=== PATIENT | male | born 1955 | race African-American/Black ===

== ENCOUNTER 2016-09-03 16:37 | Inpatient (IN) | payer OTHER ==
[~2016-09-03] VITALS: Ht 177.8 cm; Wt 82.7 kg
[2016-09-03 18:08] VITALS: BP 106/60; PULSE 135; RESP 24; TEMP 102.2; O2SAT 99
--- NOTE | 2016-09-03 18:37 | PD ---
HPI Chief Complaint: Abdominal Pain Time Seen by Provider: 18:34 Travel History International Travel<30 days: No Contact w/Intl Traveler<30days: No Traveled to known affect area: No History of Present Illness HPI 61-year-old Afro-Citizen Of [place] male [facility], with several day history of increasing abdominal pain, nausea, and vomiting times one over the past 72 hours. Patient has a history of hepatitis and HIV. Patient states decreased appetite due to his symptoms. He has had no diarrhea, but decreased stools but he states he hasn't been eating. Patient states he has felt feverish off and on in the last 2 days. He denies chest pain, shortness of breath, cough, or back pain. He denies urinary symptoms. Patient still has his gallbladder and appendix. The patient is currently incarcerated. He has no known drug allergies. [facility] Social History Alcohol Use: No Tobacco Use: No Substance Use: No Allergies-Medications (Allergen,Severity, Reaction): Coded Allergies: No Known Allergies (Unverified , 09/03/16) Reported Meds & Prescriptions Reported Meds & Active Scripts Active Reported Multi-Vitamin Daily (Multiple Vitamin) 1 Tab Tab 1 Tab PO DAILY Atripla (Itcsrahfa-Gezvjmotjzglf-Lmrfnkoyi) 600-200-300 Mg Tab 1 Tab PO HS Take on an empty stomach. [Teragel] DAILY [Teragel Shampoo] Xopenex Hfa 15 GM Inh (Levalbuterol 15 GM Inh) 45 Mcg/Act Aer 45 Mcg INH Q4-6H Shake well before using. (1 puff = 45 mcg) Aspir-81 (Aspirin) 81 Mg Tabdr 81 Mg PO DAILY [Clotrimazole Cream] BID Fiber-Lax (Calcium Polycarbophil) 625 Mg Tab 1,250 Mg PO DAILY PRN Review of Systems Except as stated in HPI: all other systems reviewed are Neg General / Constitutional: Positive: Fever, Chills Eyes: No: Visual changes HENT: No: Headaches Cardiovascular: No: Chest Pain or Discomfort Respiratory: No: Shortness of Breath Gastrointestinal: Positive: Nausea, Vomiting, Abdominal Pain (since Tuesday. See history present illness.), Loss of Appetite, No: Diarrhea, Constipation Genitourinary: No: Dysuria Musculoskeletal: No: Pain Skin: No Rash Neurologic: No: Weakness Psychiatric: No: Depression Endocrine: No: Polydipsia Hematologic/Lymphatic: No: Easy Bruising Physical Exam Narrative GENERAL: SKIN: Warm and dry. HEAD: Atraumatic. Normocephalic. EYES: Pupils equal and round. No scleral icterus. No injection or drainage. ENT: No nasal bleeding or discharge. Mucous membranes pink and moist. NECK: Trachea midline. No JVD. CARDIOVASCULAR: Regular rate and rhythm. RESPIRATORY: No accessory muscle use. Clear to auscultation. Breath sounds equal bilaterally. GASTROINTESTINAL: Abdomen soft, non-tender, nondistended. Hepatic and splenic margins not palpable. MUSCULOSKELETAL: Extremities without clubbing, cyanosis, or edema. No obvious deformities. NEUROLOGICAL: Awake and alert. No obvious cranial nerve deficits. Motor grossly within normal limits. Five out of 5 muscle strength in the arms and legs. Normal speech. PSYCHIATRIC: Appropriate mood and affect; insight and judgment normal. Data Data Last Documented VS Vital Signs Date Time Temp Pulse Resp B/P Pulse Ox O2 Delivery O2 Flow Rate FiO2 09/03/16 22:26 98.7 80 18 95/62 97 Room Air Orders Complete Blood Count With Diff (09/03/16 19:05) Comprehensive Metabolic Panel (09/03/16 19:05) Lipase (09/03/16 19:05) Prothrombin Time / Inr (Pt) (09/03/16 19:05) Act Partial Throm Time (Ptt) (09/03/16 19:05) Urinalysis - C+S If Indicated (09/03/16 19:05) Ct Abd/Pel W Iv Contrast(Rout) (09/03/16 19:05) Iv Access Insert/Monitor (09/03/16 19:05) Ecg Monitoring (09/03/16 19:05) Oximetry (09/03/16 19:05) NPO (09/03/16 19:05) Morphine Inj (Morphine Inj) (09/03/16 19:15) Ondansetron Inj (Zofran Inj) (09/03/16 19:15) Sodium Chlor 0.9% 1000 Ml Inj (Ns 1000 M (09/03/16 19:05) Sodium Chloride 0.9% Flush (Ns Flush) (09/03/16 19:15) Electrocardiogram (09/03/16 19:05) Lactic Acid Sepsis Protocol (09/03/16 19:08) Acetaminophen (Tylenol) (09/03/16 19:15) Ibuprofen (Motrin) (09/03/16 19:15) Oral Contrast - Adult (09/03/16 19:11) Vancomycin Inj (Vancomycin Inj) (09/03/16 19:11) Piperacil-Tazo 4.5 Gm Premix (Zosyn 4.5 (09/03/16 19:11) Diatrizoate Liq ( Gastroview Liq) (09/03/16 19:32) Blood Culture (09/03/16 19:32) Iohexol 350 Inj (Omnipaque 350 Inj) (09/03/16 21:35) Labs Laboratory Tests Test 09/03/16 09/03/16 19:13 19:15 White Blood Count 18.0 TH/MM3 Red Blood Count 4.21 MIL/MM3 Hemoglobin 13.2 GM/DL Hematocrit 37.5 % Mean Corpuscular Volume 89.3 FL Mean Corpuscular Hemoglobin 31.5 PG Mean Corpuscular Hemoglobin 35.3 % Concent Red Cell Distribution Width 11.5 % Platelet Count 203 TH/MM3 Mean Platelet Volume 8.8 FL Neutrophils (%) (Auto) 74.9 % Lymphocytes (%) (Auto) 14.1 % Monocytes (%) (Auto) 10.6 % Eosinophils (%) (Auto) 0.2 % Basophils (%) (Auto) 0.2 % Neutrophils # (Auto) 13.5 TH/MM3 Lymphocytes # (Auto) 2.5 TH/MM3 Monocytes # (Auto) 1.9 TH/MM3 Eosinophils # (Auto) 0.0 TH/MM3 Basophils # (Auto) 0.0 TH/MM3 CBC Comment DIFF FINAL Differential Comment Prothrombin Time 11.0 SEC Prothromb Time International 1.0 RATIO Ratio Activated Partial 30.1 SEC Thromboplast Time Sodium Level 134 MEQ/L Potassium Level 3.5 MEQ/L Chloride Level 100 MEQ/L Carbon Dioxide Level 26.1 MEQ/L Anion Gap 8 MEQ/L Blood Urea Nitrogen 12 MG/DL Creatinine 0.85 MG/DL Estimat Glomerular Filtration 112 ML/MIN Rate Random Glucose 111 MG/DL Calcium Level 8.9 MG/DL Total Bilirubin 1.6 MG/DL Aspartate Amino Transf 96 U/L (AST/SGOT) Alanine Aminotransferase 24 U/L (ALT/SGPT) Alkaline Phosphatase 67 U/L Total Protein 8.4 GM/DL Albumin 3.4 GM/DL Lipase 107 U/L Lactic Acid Level 1.0 mmol/L [facility] Medical Decision Making Medical Screen Exam Complete: Yes Emergency Medical Condition: Yes Differential Diagnosis Abdominal pain. Fever. Diverticulitis. Appendicitis. Gallbladder disease. Urinary tract infection. Sepsis. Narrative Course Patient is medically stable at time of exam. EKG is ordered. Labs ordered including CBC, CMP, lactic acid, and urinalysis. Blood cultures 2 are ordered. Patient is made nothing by mouth. Coagulation studies are ordered as well. Chest x-ray, EKG, and abdominal CT scan with IV and oral contrast was ordered. IV is obtained and patient is given 4.5 g of Zosyn IV, vancomycin 1000 mg IV, 650 mg Tylenol by mouth, 600 mg ibuprofen by mouth, 4 mg morphine IV, 4 mg Zofran IV, and 1000 mL's normal saline bolus. CBC shows leukocytosis of 18.0. CMP is unremarkable with a sodium of 134, normal BUN and creatinine, random glucose 111, total bilirubin of 1.6, AST slightly elevated at 96. AST normal at 24. Lipase 107. Lactic acid is 1.0. Coagulation studies are normal. 2300 hrs. patient is discussed with Dr. Ray, who accepts care of the patient. CT scan is still pending. Disposition Will be per Dr. Ray Condition: Stable Dashawn Ramírez Sep 03, 2016 18:37
[2016-09-03] MEDS ORDERED: [UNRECOGNIZED DRUG - OTHER] (18:56)
[2016-09-03] MEDS ORDERED: FIBE625T4 PO (18:56)
[2016-09-03] MEDS ORDERED: XOPEAER4 INH (18:56)
[2016-09-03] MEDS ORDERED: ASPI81TA81 PO (18:56)
[2016-09-03] MEDS ORDERED: [UNRECOGNIZED DRUG - OTHER] (18:56)
[2016-09-03] MEDS ORDERED: CLOTRIMAZOLE CREAM (18:56)
[2016-09-03] MEDS ORDERED: MULT-65 PO (18:59)
[2016-09-03] MEDS ORDERED: ATRITAB PO (18:59)
[2016-09-03 19:03] VITALS: PULSE 115; RESP 20; TEMP 102.5; O2SAT 95
[2016-09-03] MEDS ORDERED: SODIUM CHLOR 0.9% 1000 ML INJ 1,000 ML IV SCH (19:05)
[2016-09-03] MEDS ORDERED: PIPERACIL-TAZO 4.5 GM PREMIX 100 ML IV STA (19:11)
[2016-09-03] MEDS ORDERED: VANCOMYCIN INJ 1,000 MG in SODIUM CHLOR 0.9% 250 ML INJ 250 ML IV STA (19:11)
[2016-09-03] MEDS ORDERED: MORPHINE SULFATE 4 MG/ML INJ IV PUSH ONE (19:15)
[2016-09-03] MEDS ORDERED: SODIUM CHLORIDE 0.9% FLUSH 10 ML FLUSH IV FLUSH PRN (19:15)
[2016-09-03] MEDS ORDERED: ACETAMINOPHEN 325 MG TAB PO ONE (19:15)
[2016-09-03] MEDS ORDERED: ONDANSETRON HCL 4 MG/2 ML VIAL IVP ONE (19:15)
[2016-09-03] MEDS ORDERED: IBUPROFEN 600 MG TAB PO ONE (19:15)
[2016-09-03] MEDS ORDERED: DIATRIZOATE MEGLUM/DIATRIZOATE SOD 9 ML CUP ONE (19:32)
[2016-09-03 19:57] VITALS: RESP 18; O2SAT 96
[2016-09-03 19:58] LABS: APTT (PATIENT) 30.1 SEC (24.3-30.1)
[2016-09-03 20:02] LABS: AUTOMATED NEUTROPHIL # 13.5 TH/MM3 (1.8-7.7); BASOPHIL % 0.2 % (0.0-2.0); EOSINOPHIL % 0.2 % (0.0-4.0); HEMATOCRIT 37.5 % (39.0-51.0); HEMO FLAGS DIFF FINAL; LYMPH % 14.1 % (9.0-44.0); LYMPHOCYTE # 2.5 TH/MM3 (1.0-4.8); MEAN CELL VOLUME 89.3 FL (80.0-100.0); MEAN CORPUSCULAR HEMOGLOBIN 31.5 PG (27.0-34.0); MEAN CORPUSCULAR HGB CONC 35.3 % (32.0-36.0); MONO % 10.6 % (0.0-8.0); NEUT % 74.9 % (16.0-70.0); PLATELET COUNT 203 TH/MM3 (150-450); RED BLOOD COUNT 4.21 MIL/MM3 (4.50-5.90); RED CELL DISTRIBUTION WIDTH 11.5 % (11.6-17.2)
[2016-09-03 20:09] LABS: ANION GAP 8 MEQ/L (5-15); AST (GOT) 96 U/L (15-37); BICARBONATE 26.1 MEQ/L (21.0-32.0); BLOOD UREA NITROGEN 12 MG/DL (7-18); CHLORIDE 100 MEQ/L (98-107); GLOMERULAR FILTRATION RATE 112 ML/MIN (>89); POTASSIUM 3.5 MEQ/L (3.5-5.1); SODIUM (NA) 134 MEQ/L (136-145)
[2016-09-03 20:12] LABS: ALKALINE PHOSPHATASE 67 U/L (45-117); ALT (GPT) 24 U/L (12-78); TOTAL BILIRUBIN ADULT 1.6 MG/DL (0.2-1.0)
[2016-09-03] MEDS ORDERED: IOHEXOL 350 MG/ML 10 ML VIAL (for RAD DIAG) IV ONE (21:35)
[2016-09-03 22:26] VITALS: BP 95/62; PULSE 80; RESP 18; TEMP 98.7; O2SAT 97
--- NOTE | 2016-09-03 22:50 | RADRPT ---
EXAM DATE/TIME: 09/03/2016 21:24 [place] COMPARISON: No previous studies available for comparison. INDICATIONS : Abdominal pain with nausea, vomiting, and diarrhea. IV CONTRAST: 100 cc Omnipaque 350 (iohexol) IV ORAL CONTRAST: Prescribed oral contrast ingested. RADIATION DOSE: 9.96 CTDIvol (mGy) MEDICAL HISTORY : Chronic obstructive pulmonary disease. HIV. Hepatitis C. SURGICAL HISTORY : None. ENCOUNTER: Initial ACUITY: 1 day PAIN SCALE: 8/10 LOCATION: Abdomen TECHNIQUE: Volumetric scanning of the abdomen and pelvis was performed. Using automated exposure control and adjustment of the mA and/or kV according to patient size, radiation dose was kept as low as reasonably achievable to obtain optimal diagnostic quality images. FINDINGS: There is distension of the gallbladder. The gallbladder wall appears thickened. Ther e is some induration seen around the gallbladder. There does appear to be a 0.6 cm stone in the gallb ladder neck region. Significant dilatation of the biliary ducts is not seen. The liver demonstrates decreased density likely related to mild fatty infiltration. The spleen, panc reas, and adrenal glands are normal. Both kidneys demonstrate normal enhancement. There is minimal c ystic change seen bilaterally. No hydronephrosis or renal stones are seen. The retroperitoneal stru ctures are grossly intact. There are some minimal calcifications seen at the arterial system. No an eurysm is seen. The pelvic structures appear grossly intact. The bowel is unremarkable. CONCLUSION: 1. Distension of the gallbladder with thickening of the gallbladder wall surrounding inflammatory jessica nge and a 6 mm stone in the gallbladder neck region all concerning for cholecystitis 2. Suspected mild fatty infiltration of the liver. Rafa Sanders MD on September 03, 2016 at 22:36 Board Certified Radiologist. This report was verified electronically.
--- NOTE | 2016-09-03 23:49 | HHI.HP ---
[facility] Service [facility] Primary Care Physician No Primary Care Physician Admission Diagnosis sepsis, acute cholecystitis Diagnoses: (1) Sepsis Diagnosis: Principal (2) Acute cholecystitis Diagnosis: Principal (3) HIV (human immunodeficiency virus infection) Diagnosis: Principal Travel History International Travel<30 Days: No Contact w/Intl Traveler <30 Da: No Traveled to Known Affected Are: No History of Present Illness This is a 61-year-old male with PMH of HIV on HAART and Hepatitis C who was sent to the ER from [facility] for evaluation of acute onset of abdominal pain, nausea and vomiting. States symptoms started approx 3 days ago and have been getting progressively worse. Unable to take PO, reports subjective fever/ chills. On arrival, BP 106/60, HR 135, O2 sat 99% on RA, Temp 102.2. WBC 18. Chemistry unremarkable. Lactic Acid 1.0. INR 1.0. CT Abd/Pelvis w/ distention of gallbladder with thickening of gallbladder wall surrounding inflammatory change and 6 mm stone in gallbladder neck, concerning for cholecystitis. Dr. Borden consulted by ER physician, will evaluate for surgical intervention. S/p Zosyn in ER. Review of Systems Except as stated in HPI: all other systems reviewed are Neg ROS: 14 point review of systems otherwise negative. Past Family Social History Past Medical History PMH: HIV on HAART, Hepatitis C Past Surgical History PAST SURGICAL HISTORY: None Allergies: Coded Allergies: No Known Allergies (Unverified , 09/03/16) Family History PAST FAMILY HISTORY: Reviewed. No h/o DM or CAD Social History PAST SOCIAL HISTORY: Negative for alcohol, tobacco or drugs. Physical Exam Vital Signs Vital Signs Date Time Temp Pulse Resp B/P Pulse Ox O2 Delivery O2 Flow Rate FiO2 09/03/16 22:26 98.7 80 18 95/62 97 Room Air 09/03/16 19:57 18 96 Room Air 09/03/16 19:03 102.5 115 20 95 Room Air 09/03/16 18:08 102.2 135 24 106/60 99 Physical Exam PE: GENERAL: Middle-aged black male in no acute distress. HEENT: PERRLA, EOMI. No scleral icterus or conjunctival pallor. No lid lag or facial droop. CARDIOVASCULAR: Regular rate and rhythm. No obvious murmurs to auscultation. No chest tenderness to palpation. RESPIRATORY: No obvious rhonchi or wheezing. Clear to auscultation. Breath sounds equal bilaterally. GASTROINTESTINAL: Abdomen soft, mild RUQ/epigastric tenderness to palpation nondistended. BS normal. MUSCULOSKELETAL: Extremities without clubbing, cyanosis, or edema. No obvious deformities. NEUROLOGICAL: Awake, alert and oriented x4. No focal neurologic deficits. Moving both upper and lower extremities spontaneously. Laboratory Laboratory Tests Test 09/03/16 09/03/16 19:13 19:15 White Blood Count 18.0 Red Blood Count 4.21 Hemoglobin 13.2 Hematocrit 37.5 Mean Corpuscular Volume 89.3 Mean Corpuscular Hemoglobin 31.5 Mean Corpuscular Hemoglobin 35.3 Concent Red Cell Distribution Width 11.5 Platelet Count 203 Mean Platelet Volume 8.8 Neutrophils (%) (Auto) 74.9 Lymphocytes (%) (Auto) 14.1 Monocytes (%) (Auto) 10.6 Eosinophils (%) (Auto) 0.2 Basophils (%) (Auto) 0.2 Neutrophils # (Auto) 13.5 Lymphocytes # (Auto) 2.5 Monocytes # (Auto) 1.9 Eosinophils # (Auto) 0.0 Basophils # (Auto) 0.0 CBC Comment DIFF FINAL Differential Comment Prothrombin Time 11.0 Prothromb Time International 1.0 Ratio Activated Partial 30.1 Thromboplast Time Sodium Level 134 Potassium Level 3.5 Chloride Level 100 Carbon Dioxide Level 26.1 Anion Gap 8 Blood Urea Nitrogen 12 Creatinine 0.85 Estimat Glomerular Filtration 112 Rate Random Glucose 111 Calcium Level 8.9 Total Bilirubin 1.6 Aspartate Amino Transf 96 (AST/SGOT) Alanine Aminotransferase 24 (ALT/SGPT) Alkaline Phosphatase 67 Total Protein 8.4 Albumin 3.4 Lipase 107 Lactic Acid Level 1.0 Date/Time Procedure Status Source Growth 09/03/16 19:30 Aerobic Blood Culture Received Blood Peripheral Pending 09/03/16 19:30 Anaerobic Blood Culture Received Blood Peripheral Pending Result Diagram: 09/03/16191209/03/161912 Assessment and Plan Problem List: (1) Sepsis ICD Code: A41.9 Status: Acute (2) Acute cholecystitis ICD Code: K81.0 Status: Acute (3) HIV (human immunodeficiency virus infection) ICD Code: Z21 Status: Acute Assessment and Plan A/P: 1. Sepsis: Temp 102.2, HR 135, WBC 18, Source-Acute Cholecystitis. S/p Blood Cultures, Zosyn in ER. Follow up cultures, continue IV Abx. 2. Acute Cholecystitis: c/o abdominal pain, nausea/vomiting, decreased PO intake. CT Abd/Pelvis w/ distention of gallbladder with thickening of gallbladder wall surrounding inflammatory change and 6 mm stone in gallbladder neck concerning for cholecystitis, images reviewed by me. Dr. Borden consulted by ER physician, will evaluate for possible surgical intervention in am, NPO, IVF, continue w/ IV Abx. 3. HIV: Will hold HAART in light of acute cholecystitis, resume home medications once flare resolved. 4. DVT Prophylaxis: SCD/Teds. 5. Social work for d/c planning as needed. 6. Case discussed w/ ER physician at length. Physician Certification 2 Midnight Certification Type: Admission for Inpatient Services Order for Inpatient Services The services are ordered in accordance with Medicare regulations or non- Medicare payer requirements, as applicable. In the case of services not specified as inpatient-only, they are appropriately provided as inpatient services in accordance with the 2-midnight benchmark. Estimated LOS (days): 2 days is the estimated time the patient will need to remain in the hospital, assuming treatment plan goals are met and no additional complications. Post-Hospital Plan: Not yet determined Brenda Johnston MD Sep 03, 2016 23:49
--- NOTE | 2016-09-03 23:55 | PD ---
Data Data Last Documented VS Vital Signs Date Time Temp Pulse Resp B/P Pulse Ox O2 Delivery O2 Flow Rate FiO2 09/03/16 22:26 98.7 80 18 95/62 97 Room Air Orders Complete Blood Count With Diff (09/03/16 19:05) Comprehensive Metabolic Panel (09/03/16 19:05) Lipase (09/03/16 19:05) Prothrombin Time / Inr (Pt) (09/03/16 19:05) Act Partial Throm Time (Ptt) (09/03/16 19:05) Urinalysis - C+S If Indicated (09/03/16 19:05) Ct Abd/Pel W Iv Contrast(Rout) (09/03/16 19:05) Iv Access Insert/Monitor (09/03/16 19:05) Ecg Monitoring (09/03/16 19:05) Oximetry (09/03/16 19:05) NPO (09/03/16 19:05) Morphine Inj (Morphine Inj) (09/03/16 19:15) Ondansetron Inj (Zofran Inj) (09/03/16 19:15) Sodium Chlor 0.9% 1000 Ml Inj (Ns 1000 M (09/03/16 19:05) Sodium Chloride 0.9% Flush (Ns Flush) (09/03/16 19:15) Electrocardiogram (09/03/16 19:05) Lactic Acid Sepsis Protocol (09/03/16 19:08) Acetaminophen (Tylenol) (09/03/16 19:15) Ibuprofen (Motrin) (09/03/16 19:15) Oral Contrast - Adult (09/03/16 19:11) Vancomycin Inj (Vancomycin Inj) (09/03/16 19:11) Piperacil-Tazo 4.5 Gm Premix (Zosyn 4.5 (09/03/16 19:11) Diatrizoate Liq ( Gastroview Liq) (09/03/16 19:32) Blood Culture (09/03/16 19:32) Iohexol 350 Inj (Omnipaque 350 Inj) (09/03/16 21:35) Admit Order (Ed Use Only) (09/03/16 23:48) Piperacil-Tazo 4.5 Gm Premix (Zosyn 4.5 (09/04/16 01:00) Admit To Inpatient (09/03/16 ) Vital Signs (Adult) Q4H (09/03/16 23:49) Activity Oob Ad Radha (09/03/16 23:49) Intake + Output ZAID.QSHIFT (09/03/16 23:49) Diet Npo (09/04/16 Breakfast) Sodium Chlor 0.9% 1000 Ml Inj (Ns 1000 M (09/03/16 23:49) Sodium Chloride 0.9% Flush (Ns Flush) (09/04/16 00:00) Sodium Chloride 0.9% Flush (Ns Flush) (09/04/16 09:00) Ondansetron Inj (Zofran Inj) (09/04/16 00:00) Bisacodyl Supp (Dulcolax Supp) (09/04/16 00:00) Comprehensive Metabolic Panel (09/04/16 06:00) Complete Blood Count With Diff (09/04/16 06:00) Scd Bilateral/Knee High ZAID.BID (09/03/16 23:49) Polo Bilateral/Knee High ZAID.QSHIFT (09/03/16 23:49) Acetaminophen (Tylenol) (09/04/16 00:00) Acetamin-Hydrocod 325-5 Mg ([place] 5-325 (09/04/16 00:00) Morphine Inj (Morphine Inj) (09/04/16 00:00) Inpatient Certification (09/03/16 ) Labs Laboratory Tests Test 09/03/16 09/03/16 19:13 19:15 White Blood Count 18.0 TH/MM3 Red Blood Count 4.21 MIL/MM3 Hemoglobin 13.2 GM/DL Hematocrit 37.5 % Mean Corpuscular Volume 89.3 FL Mean Corpuscular Hemoglobin 31.5 PG Mean Corpuscular Hemoglobin 35.3 % Concent Red Cell Distribution Width 11.5 % Platelet Count 203 TH/MM3 Mean Platelet Volume 8.8 FL Neutrophils (%) (Auto) 74.9 % Lymphocytes (%) (Auto) 14.1 % Monocytes (%) (Auto) 10.6 % Eosinophils (%) (Auto) 0.2 % Basophils (%) (Auto) 0.2 % Neutrophils # (Auto) 13.5 TH/MM3 Lymphocytes # (Auto) 2.5 TH/MM3 Monocytes # (Auto) 1.9 TH/MM3 Eosinophils # (Auto) 0.0 TH/MM3 Basophils # (Auto) 0.0 TH/MM3 CBC Comment DIFF FINAL Differential Comment Prothrombin Time 11.0 SEC Prothromb Time International 1.0 RATIO Ratio Activated Partial 30.1 SEC Thromboplast Time Sodium Level 134 MEQ/L Potassium Level 3.5 MEQ/L Chloride Level 100 MEQ/L Carbon Dioxide Level 26.1 MEQ/L Anion Gap 8 MEQ/L Blood Urea Nitrogen 12 MG/DL Creatinine 0.85 MG/DL Estimat Glomerular Filtration 112 ML/MIN Rate Random Glucose 111 MG/DL Calcium Level 8.9 MG/DL Total Bilirubin 1.6 MG/DL Aspartate Amino Transf 96 U/L (AST/SGOT) Alanine Aminotransferase 24 U/L (ALT/SGPT) Alkaline Phosphatase 67 U/L Total Protein 8.4 GM/DL Albumin 3.4 GM/DL Lipase 107 U/L Lactic Acid Level 1.0 mmol/L MDM Supervised Visit with ARCADIO: Yes Narrative Course The history, exam, and medical decision-making in the associated midlevel provider note were completed with my assistance. I reviewed and agree with the findings presented. I attest that I had a [id number] encounter with the patient on the same day, and personally performed and documented my assessment and findings in the medical record. *My assessment and Findings: This is a 61-year-old male who presents to the emergency department with fevers, vomiting and right upper quadrant abdominal pain. He was febrile on arrival and has a white count of 18. Cultures were obtained and he was covered with broad-spectrum antibiotics for sepsis. CT abdomen and pelvis confirms acute cholecystitis. I spoke to Dr. Borden who wanted the patient admitted to medicine. Patient was admitted to Dr. Johnston Physician Communication Physician Communication Discussed with Dr. Deluna and Dr. Borden Diagnosis Primary Impression: Acute cholecystitis Admitting Information Admitting Physician Requests: Admit Condition: Stable Halina Ray MD Sep 03, 2016 23:55
[2016-09-04] MEDS ORDERED: ONDANSETRON HCL 4 MG/2 ML VIAL IVP PRN
[2016-09-04] MEDS ORDERED: BISACODYL 10 MG SUPP RECTAL PRN
[2016-09-04] MEDS ORDERED: MORPHINE SULFATE 4 MG/ML INJ IV PRN
[2016-09-04] MEDS ORDERED: ACETAMINOPHEN/HYDROcodone 325 MG/5 MG TAB PO PRN
[2016-09-04] MEDS ORDERED: ACETAMINOPHEN 325 MG TAB PO PRN
[2016-09-04] MEDS ORDERED: SODIUM CHLORIDE 0.9% FLUSH 10 ML FLUSH IV FLUSH PRN
[2016-09-04] MEDS: SODIUM CHLOR 0.9% 1000 ML INJ 1,000 ML IV SCH ×3 (01:59→19:41)
[2016-09-04] MEDS: PIPERACIL-TAZO 4.5 GM PREMIX 100 ML IV SCH ×4 (02:00→19:40)
[2016-09-04 02:45] VITALS: BP 100/70; PULSE 69; RESP 18; TEMP 96.8; O2SAT 97
[2016-09-04 08:00] VITALS: BP 104/70; PULSE 69; RESP 16; TEMP 96.1; O2SAT 99
[2016-09-04] MEDS: SODIUM CHLORIDE 0.9% FLUSH 10 ML FLUSH IV FLUSH SCH ×2 (09:00→19:40)
[2016-09-04 09:35] LABS: AUTOMATED NEUTROPHIL # 8.4 TH/MM3 (1.8-7.7); BASOPHIL % 0.2 % (0.0-2.0); EOSINOPHIL # 0.3 TH/MM3 (0-0.4); EOSINOPHIL % 2.4 % (0.0-4.0); HEMATOCRIT 34.3 % (39.0-51.0); LYMPH % 12.4 % (9.0-44.0); LYMPHOCYTE # 1.4 TH/MM3 (1.0-4.8); MEAN CELL VOLUME 90.3 FL (80.0-100.0); MEAN CORPUSCULAR HEMOGLOBIN 31.6 PG (27.0-34.0); PLATELET COUNT 178 TH/MM3 (150-450); RED CELL DISTRIBUTION WIDTH 11.9 % (11.6-17.2); WHITE BLOOD COUNT 10.9 TH/MM3 (4.0-11.0)
[2016-09-04 09:38] LABS: HEMO FLAGS AUTO DIFF
[2016-09-04 10:10] LABS: ALKALINE PHOSPHATASE 59 U/L (45-117); ALT (GPT) 20 U/L (12-78); ANION GAP 7 MEQ/L (5-15); AST (GOT) 65 U/L (15-37); BICARBONATE 28.4 MEQ/L (21.0-32.0); BLOOD UREA NITROGEN 11 MG/DL (7-18); CHLORIDE 103 MEQ/L (98-107); GLOMERULAR FILTRATION RATE 113 ML/MIN (>89); POTASSIUM 3.7 MEQ/L (3.5-5.1); SODIUM (NA) 138 MEQ/L (136-145); TOTAL BILIRUBIN ADULT 1.4 MG/DL (0.2-1.0)
[2016-09-04 10:37] LABS: BANDS 1 % (0-6); EOSINOPHILS 1 % (0-4); MYELOCYTES 1 % (0-0); NEUTROPHIL # MANUAL DIFF 8.2 TH/MM3 (1.8-7.7); PLATELET ESTIMATE SMEAR NORMAL (NORMAL); PLATELET MORPHOLOGY NORMAL (NORMAL); POLYS (SEG NEUTROPHILS) 73 % (16-70); SCAN/DIFF FINAL DIFF MANUAL; WBC DIFF SAMPLE 100
--- NOTE | 2016-09-04 11:03 | MB ---
cc: [place] [facility] DATE OF CONSULTATION: 09/04/2016 REASON FOR CONSULTATION: REFERRING PHYSICIAN: Dr. Brenda Johnston. REASON FOR CONSULTATION Acute cholecystitis HISTORY OF PRESENT ILLNESS The patient is a 61-year-old male who is currently incarcerated and in the halfway who was brought to [facility] for fever of 102 and abdominal pain. The patient had a history of HIV and has currently on HAART therapy. The patient was a history hepatitis C. The patient underwent evaluation in the emergency department, significant right upper quadrant tenderness and leukocytosis. Imaging was preformed, CT of the abdomen and pelvis showed distention of the gallbladder with gallbladder stones in the neck of the gallbladder concerning for acute cholecystitis. Placed the patient on antibiotics, was n.p.o. and given IV fluid for resuscitation. General surgery was consulted for evaluation and possible cholecystectomy. REVIEW OF SYSTEMS A 12 Point review of systems was conducted with the patient and are negative with the exception of the HPI. PAST MEDICAL HISTORY Hepatitis C. HIV PAST SURGICAL HISTORY: No abdominal surgeries. ALLERGIES NO KNOWN DRUG ALLERGIES SOCIAL HISTORY: The patient denies alcohol, tobacco or no drug abuse, currently a prisoner at [facility]. FAMILY HISTORY: No history of malignancies. PHYSICAL EXAMINATION VITAL SIGNS: Temperature 98.7 Degrees, pulse 80, respiratory rate 15, blood pressure 95/52, o2 saturation WNL, low blood flow. IN GENERAL: -[place] male in no acute distress, is chronically ill. HEAD, EYES, EARS, NOSE, AND THROAT: Head is normocephalic, atraumatic, Pupils equal, round, reactive to light, sclera is nonicteric. NECK: The neck is supple. No jugular venous distention. LUNGS: The lungs are clear to auscultation bilaterally, Nonlabored breathing pattern. HEART: Regular rhythm. ABDOMEN: The abdomen is soft, mildly distended and nontender to palpation. No Mcelroy sign. No rebound tenderness. No organomegaly. No surgical scars, no hernias. Normal bowel sounds. EXTREMITIES: No clubbing, cyanosis or edema. BACK: No CVA tenderness. NEUROLOGIC EXAMINATION; Patient is awake, alert and oriented x3. All extremities. Nonfocal cranial II-XII grossly intact. ASSESSMENT/PLAN The patient is a 61-year-old male prisoner with acute cholecystitis. The patient responded well to antibiotic therapy. I discussed the patient about this and management with laparoscopic cholecystectomy and risks explained risks, benefits, alternatives to surgery. The patient agreed to undergo laparoscopic cholecystectomy possibility open we will schedule the patient for surgery in the next 24 to 48 hours. We will keep the patient n.p.o. on clear liquids until after midnight out. Continue antibiotics at this time. MD BEN Carranza/teresa /9:55 AM /10:08 AM [id number]
[2016-09-04 12:05] VITALS: BP 126/81; PULSE 76; RESP 16; TEMP 97.4; O2SAT 99
--- NOTE | 2016-09-04 14:29 | EKG ---
Date Performed: 09/03/2016 Time Performed: 19:20:45 PTAGE: 61 years EKG: SINUS TACHYCARDIA ABNORMAL RHYTHM ECG NO PREVIOUS TRACING DOCTOR: Jose Guadalupe Lawler Interpretating Date/Time 09/04/2016 14:24:49
[2016-09-04 15:45] VITALS: BP 103/65; PULSE 83; RESP 16; TEMP 98.2; O2SAT 99
--- NOTE | 2016-09-04 17:38 | HHI.PR ---
Subjective Remarks Pain controlled. No nausea. Tolerating clear liquids. Planned surgery on Tuesday. Sepsis resolved. Objective Vital Signs Date Time Temp Pulse Resp B/P Pulse Ox O2 Delivery O2 Flow Rate FiO2 09/04/16 12:05 97.4 76 16 126/81 99 09/04/16 08:00 96.1 69 16 104/70 99 09/04/16 02:45 96.8 69 18 100/70 97 09/03/16 22:26 98.7 80 18 95/62 97 Room Air 09/03/16 19:57 18 96 Room Air 09/03/16 19:03 102.5 115 20 95 Room Air 09/03/16 18:08 102.2 135 24 106/60 99 I/O 09/03/16 09/03/16 09/03/16 09/04/16 09/04/16 09/04/16 07:00 15:00 23:00 07:00 15:00 23:00 Intake Total 473 ml 716 ml Output Total 0 ml 300 ml Balance 473 ml 416 ml Intake Oral 0 ml IV Total 473 ml 716 ml Output Urine Total 0 ml 300 ml # Bowel Movements 0 Result Diagram: 09/04/1692209/04/16922 Imaging Last Impressions Abdomen/Pelvis CT 09/03/16 190 Signed Impressions: Service Date/Time: Saturday, September 03, 2016 21:24 - CONCLUSION: 1. Distension of the gallbladder with thickening of the gallbladder wall surrounding inflammatory change and a 6 mm stone in the gallbladder neck region all concerning for cholecystitis 2. Suspected mild fatty infiltration of the liver. Rafa Sanders MD Objective Remarks GENERAL: A/Ox3, NAD SKIN: Warm and dry. HEAD: Atraumatic. Normocephalic. EYES: Pupils equal and round. No scleral icterus. No injection or drainage. ENT: No nasal bleeding or discharge. Mucous membranes pink and moist. NECK: Trachea midline. No JVD. CARDIOVASCULAR: Regular rate and rhythm. RESPIRATORY: No accessory muscle use. Clear to auscultation. Breath sounds equal bilaterally. GASTROINTESTINAL: Abdomen soft, moderately tender without guarding, nondistended. Hepatic and splenic margins not palpable. MUSCULOSKELETAL: Extremities without clubbing, cyanosis, or edema. No obvious deformities. NEUROLOGICAL: Awake and alert. No obvious cranial nerve deficits. Motor grossly within normal limits. Five out of 5 muscle strength in the arms and legs. Normal speech. PSYCHIATRIC: Appropriate mood and affect; insight and judgment normal. Medications and IVs Current Medications Morphine Sulfate (Morphine Inj) 4 mg ONCE ONCE IV PUSH Last administered on 19:55; Start 09/03/16 at 19:15; Stop 09/03/16 at 19:16; Status DC Ondansetron HCl 4 mg 4 mg ONCE ONCE IVP Last administered on 09/03/16 19:55; Start 09/03/16 at 19:15; Stop 09/03/16 at 19:16; Status DC Sodium Chloride (NS 1000 ml Inj) 1,000 ml @ 1,000 mls/hr Q1H IV Last administered on 09/03/16 19:54; Start 09/03/16 at 19:05; Stop 09/03/16 at 20:04; Status DC Sodium Chloride (NS Flush) 2 ml UNSCH PRN IV FLUSH FLUSH AFTER USING IV ACCESS Last administered on 09/03/16 19:56; Start 09/03/16 at 19:15; Stop 09/03/16 at 23: 58; Status DC Acetaminophen (Tylenol) 650 mg ONCE ONCE PO Last administered on 09/03/16 19: 56; Start 09/03/16 at 19:15; Stop 09/03/16 at 19:16; Status DC Ibuprofen 600 mg 600 mg ONCE ONCE PO Last administered on 09/03/16 19:56; Start 09/03/16 at 19:15; Stop 09/03/16 at 19:16; Status DC Vancomycin HCl 1000 mg/Sodium Chloride 250 ml @ 250 mls/hr ONCE STAT IV Last administered on 09/03/16 19:57; Start 09/03/16 at 19:11; Stop 09/03/16 at 20:10; Status DC Piperacillin Sod/ Tazobactam Sod (Zosyn 4.5 Gm Premix) 100 ml @ 200 mls/hr ONCE STAT IV Last administered on 09/03/16 19:54; Start 09/03/16 at 19:11; Stop 09/03/16 at 19:40; Status DC Diatrizoate Meglum/ Diatrizoate Sod ( Gastroview Liq) 18 ml STK-MED ONCE .ROUTE Last administered on 09/03/16 19:56; Start 09/03/16 at 19:32; Stop at 19:33; Status DC Iohexol 100 ml 100 ml STK-MED ONCE IV Last administered on 09/03/16 21:35; Start 09/03/16 at 21:35; Stop 09/03/16 at 21:36; Status DC Piperacillin Sod/ Tazobactam Sod 100 ml @ 200 mls/hr Q6H IV Last administered on 09/04/16 14:27; Start 09/04/16 at 02:00 Sodium Chloride (NS 1000 ml Inj) 1,000 ml @ 100 mls/hr Q10H IV Last administered on 09/04/16 10:47; Start 09/04/16 at 00:00 Sodium Chloride (NS Flush) 2 ml UNSCH PRN IV FLUSH FLUSH AFTER USING IV ACCESS ; Start 09/04/16 at 00:00 Sodium Chloride (NS Flush) 2 ml BID IV FLUSH ; Start 09/04/16 at 09:00 Ondansetron HCl (Zofran Inj) 4 mg Q6H PRN IVP NAUSEA OR VOMITING; Start at 00:00 Bisacodyl (Dulcolax Supp) 10 mg DAILY PRN RECTAL CONSTIPATION; Start 09/04/16 at 00:00 Acetaminophen (Tylenol) 650 mg Q6H PRN PO FEVER/PAIN SCALE 1 TO 2; Start at 00:00 Acetaminophen/ Hydrocodone Bitart (Nelson 5-325 Mg) 1 tab Q4H PRN PO PAIN SCALE 3 TO 5; Start 09/04/16 at 00:00 Morphine Sulfate (Morphine Inj) 2 mg Q3H PRN IV Pain 6-10; Start 09/04/16 at 00: 00 A/P Problem List: (1) Acute cholecystitis ICD Code: K81.0 (2) Sepsis ICD Code: A41.9 (3) HIV (human immunodeficiency virus infection) ICD Code: Z21 Assessment and Plan A/P Acute Cholecystitis Continue antibiotics Continue pain treatments Surgeon following Plan for surgery on Tuesday Sepsis Resovled Follow for any signs of recurrence Continue antibiotics HIV Increased risk in setting of infection Continue universal percautions Treat infection as above Resume treatments once returned to PO (post op) Hipolito Worthington MD Sep 04, 2016 17:38
[2016-09-04 21:29] VITALS: BP 119/67; PULSE 85; RESP 16; TEMP 99.2; O2SAT 96
[2016-09-05 00:10] VITALS: BP 106/61; PULSE 96; RESP 16; TEMP 99.1; O2SAT 100
[2016-09-05] MEDS: PIPERACIL-TAZO 4.5 GM PREMIX 100 ML IV SCH ×4 (02:33→20:54)
[2016-09-05 04:05] VITALS: BP 116/75; PULSE 95; RESP 16; TEMP 99.5; O2SAT 98
[2016-09-05] MEDS ORDERED: BUPIVACAINE/EPINEPHRINE 0.25% PF 30 ML VIAL INFIL ONE (06:40)
[2016-09-05] MEDS ORDERED: MIDAZOLAM HCL 2 MG/2 ML VIAL ONE (07:01)
[2016-09-05 08:00] VITALS: BP 129/78; PULSE 94; RESP 17; TEMP 99.2; O2SAT 95
--- NOTE | 2016-09-05 08:02 | HHI.PR ---
Immediate Post Op Note Procedure Date: Sep 05, 2016 Pre Op Diagnosis: (1) Acute cholecystitis (2) Sepsis (3) HIV (human immunodeficiency virus infection) Post Op Diagnosis: (1) Acute cholecystitis (2) Sepsis (3) HIV (human immunodeficiency virus infection) Surgeon: Dashawn Borden Account Resolution Specialist(s): staff Procedure: laparoscopic cholecystectomy Findings: severe acute cholecystitis Complications: none Specimen(s) removed: GB Estimated blood loss: 25ml Anesthesia: General, Local Drains: ALISON IVF Patient to: PACU Patient Condition: Dashawn Montoya MD Sep 05, 2016 08:02
[2016-09-05] MEDS ORDERED: DO NOT ADM ANY ANTICOAGULANT DRUGS PRN (08:03)
[2016-09-05] MEDS ORDERED: fentaNYL CITRATE 250 MCG/5 ML AMP ONE (08:11)
[2016-09-05] MEDS: SODIUM CHLOR 0.9% 1000 ML INJ 1,000 ML IV SCH ×2 (08:37→16:35)
[2016-09-05] MEDS: SODIUM CHLORIDE 0.9% FLUSH 10 ML FLUSH IV FLUSH SCH ×2 (08:37→20:54)
[2016-09-05 10:28] LABS: AUTOMATED NEUTROPHIL # 7.5 TH/MM3 (1.8-7.7); BASOPHIL % 0.2 % (0.0-2.0); EOSINOPHIL # 0.1 TH/MM3 (0-0.4); HEMATOCRIT 33.5 % (39.0-51.0); HEMO FLAGS DIFF FINAL; LYMPH % 9.4 % (9.0-44.0); LYMPHOCYTE # 0.8 TH/MM3 (1.0-4.8); MEAN CELL VOLUME 90.2 FL (80.0-100.0); MEAN CORPUSCULAR HEMOGLOBIN 31.8 PG (27.0-34.0); MEAN CORPUSCULAR HGB CONC 35.3 % (32.0-36.0); MONO % 6.4 % (0.0-8.0); PLATELET COUNT 213 TH/MM3 (150-450); RED BLOOD COUNT 3.71 MIL/MM3 (4.50-5.90); RED CELL DISTRIBUTION WIDTH 11.8 % (11.6-17.2)
[2016-09-05] MEDS ORDERED: HYDROmorphone HCL 2 MG TAB PO PRN (10:30)
--- NOTE | 2016-09-05 10:35 | HHI.PR ---
Subjective Remarks Status post cholecystectomy this morning. Bowel sounds are active when seen, but he does not yet have hunger. His primary complaint is pain. [place] does not seem to be enough to control his pain. Objective Vital Signs Date Time Temp Pulse Resp B/P Pulse Ox O2 Delivery O2 Flow Rate FiO2 09/05/16 08:30 91 17 120/79 98 09/05/16 08:15 91 18 121/70 96 09/05/16 08:05 97.6 99 18 128/69 97 Nasal Cannula 09/05/16 08:00 99.2 94 17 129/78 95 09/05/16 04:05 99.5 95 16 116/75 98 09/05/16 00:10 99.1 96 16 106/61 100 09/04/16 21:29 99.2 85 16 119/67 96 09/04/16 15:45 98.2 83 16 103/65 99 09/04/16 12:05 97.4 76 16 126/81 99 I/O 09/04/16 09/04/16 09/04/16 09/05/16 09/05/16 09/05/16 07:00 15:00 23:00 07:00 15:00 23:00 Intake Total 473 ml 716 ml 0 ml 0 ml Output Total 0 ml 300 ml 575 ml Balance 473 ml 416 ml 0 ml -575 ml Intake Oral 0 ml 0 ml 0 ml 0 ml IV Total 473 ml 716 ml Output Urine Total 0 ml 300 ml 575 ml # Voids 1 1 # Bowel Movements 0 1 1 0 Result Diagram: 09/05/16 0941 09/04/16 0923 Imaging Last Impressions Abdomen/Pelvis CT 09/03/16 190 Signed Impressions: Service Date/Time: Saturday, September 03, 2016 21:24 - CONCLUSION: 1. Distension of the gallbladder with thickening of the gallbladder wall surrounding inflammatory change and a 6 mm stone in the gallbladder neck region all concerning for cholecystitis 2. Suspected mild fatty infiltration of the liver. Rafa Sanders MD Objective Remarks GENERAL: A/Ox3, NAD SKIN: Warm and dry. HEAD: Atraumatic. Normocephalic. EYES: Pupils equal and round. No scleral icterus. No injection or drainage. ENT: No nasal bleeding or discharge. Mucous membranes pink and moist. NECK: Trachea midline. No JVD. CARDIOVASCULAR: Regular rate and rhythm. RESPIRATORY: No accessory muscle use. Clear to auscultation. Breath sounds equal bilaterally. GASTROINTESTINAL: Abdomen soft, tender (appropriate level for post op), nondistended. Hepatic and splenic margins not palpable. MUSCULOSKELETAL: Extremities without clubbing, cyanosis, or edema. No obvious deformities. NEUROLOGICAL: Awake and alert. No obvious cranial nerve deficits. Motor grossly within normal limits. Five out of 5 muscle strength in the arms and legs. Normal speech. PSYCHIATRIC: Appropriate mood and affect; insight and judgment normal. Medications and IVs Administered Medications Medications (Trade) Dose Ordered Sig/Lluvia Route PRN Reason Start Time Stop Time Status Last Admin Dose Admin Piperacillin Sod/ Tazobactam Sod 100 ml @ 200 mls/hr Q6H IV 09/04/16 02:00 09/05/16 08:37 Sodium Chloride (NS 1000 ml Inj) 1,000 ml @ 100 mls/hr Q10H IV 09/04/16 00:00 09/05/16 08:37 Sodium Chloride (NS Flush) 2 ml BID IV FLUSH 09/04/16 09:00 09/05/16 08:37 Acetaminophen/ Hydrocodone Bitart ([place] 5-325 Mg) 1 tab Q4H PRN PO PAIN SCALE 3 TO 5 09/04/16 00:00 09/05/16 09:47 A/P Problem List: (1) Acute cholecystitis ICD Code: K81.0 (2) Sepsis ICD Code: A41.9 (3) HIV (human immunodeficiency virus infection) ICD Code: Z21 Assessment and Plan A/P Acute Cholecystitis Status post cholecystectomy this morning Continue pain treatments Surgeon following PRN [place] PRN Dilaudid Sepsis Resovled Follow for any signs of recurrence Continue antibiotics HIV Increased risk in setting of infection Continue universal percautions Treat infection as above Resume treatments today Hipolito Worthington MD Sep 05, 2016 10:35
[2016-09-05] MEDS ORDERED: NON-FORMULARY DRUG (Levalbuterol 15 GM Inh (Xopenex Hfa 15 GM Inh) 45 MCG) NEB PRN (10:45)
[2016-09-05] MEDS ORDERED: NON-FORMULARY DRUG (Levalbuterol 15 GM Inh (Xopenex Hfa 15 GM Inh) 45 MCG) INH PRN (10:45)
[2016-09-05] MEDS ORDERED: NON-FORMULARY DRUG (Levalbuterol 15 GM Inh (Xopenex Hfa 15 GM Inh) 45 MCG) INH SCH (10:45)
[2016-09-05] MEDS ORDERED: CALCIUM POLYCARBOPHIL 625 MG TAB PO PRN (10:45)
[2016-09-05 11:06] LABS: ALKALINE PHOSPHATASE 62 U/L (45-117); ALT (GPT) 24 U/L (12-78); ANION GAP 10 MEQ/L (5-15); AST (GOT) 65 U/L (15-37); BICARBONATE 25.8 MEQ/L (21.0-32.0); BLOOD UREA NITROGEN 8 MG/DL (7-18); CHLORIDE 101 MEQ/L (98-107); GLOMERULAR FILTRATION RATE 112 ML/MIN (>89); POTASSIUM 3.6 MEQ/L (3.5-5.1); SODIUM (NA) 137 MEQ/L (136-145); TOTAL BILIRUBIN ADULT 0.9 MG/DL (0.2-1.0)
[2016-09-05 12:00] VITALS: BP 120/78; PULSE 81; RESP 18; TEMP 97.9; O2SAT 97
[2016-09-05] MEDS ORDERED: PHENYLEPH/NS 1000 MCG/10 ML SYR IV ONE (14:33)
[2016-09-05] MEDS ORDERED: NEOSTIGMINE 3 MG/3 ML SYR IV ONE (14:33)
[2016-09-05] MEDS ORDERED: PROPOFOL 200 MG/20 ML AMP IV ONE (14:33)
[2016-09-05] MEDS ORDERED: ONDANSETRON HCL 4 MG/2 ML VIAL IV PUSH ONE (14:34)
[2016-09-05] MEDS ORDERED: LACTATED RINGER'S 1000 ML INJ 1,000 ML IV ONE (14:34)
[2016-09-05 16:00] VITALS: BP 136/80; PULSE 96; RESP 18; TEMP 103.1; O2SAT 93
[2016-09-05] MEDS: oxyCODONE/ACETAMINOPHEN 7.5 MG/325 MG TAB PO PRN ×2 (16:36→21:14)
[2016-09-05 19:40] VITALS: BP 110/58; PULSE 100; RESP 17; TEMP 100.2; O2SAT 93
[2016-09-05] MEDS: EMTRICITABINE/TENOFOVIR 200 MG/300 MG TAB PO SCH (20:55)
[2016-09-05] MEDS ORDERED: NON-FORMULARY DRUG (Efavirenz-Emtricitabine-Tenofovir (Atripla) 1 TAB) PO SCH (21:00)
[2016-09-06] VITALS (8 sets, daily range): BP systolic 105–123; BP diastolic 58–76; PULSE 89–104; RESP 16–18; TEMP 97.9–101.2; O2SAT 92–98
[2016-09-06] MEDS: oxyCODONE/ACETAMINOPHEN 7.5 MG/325 MG TAB PO PRN ×5 (01:53→20:57)
[2016-09-06] MEDS: PIPERACIL-TAZO 4.5 GM PREMIX 100 ML IV SCH ×4 (01:53→20:48)
[2016-09-06] MEDS: SODIUM CHLOR 0.9% 1000 ML INJ 1,000 ML IV SCH (01:54)
[2016-09-06 06:25] LABS: AUTOMATED NEUTROPHIL # 7.9 TH/MM3 (1.8-7.7); BASOPHIL % 0.2 % (0.0-2.0); EOSINOPHIL # 0.2 TH/MM3 (0-0.4); EOSINOPHIL % 1.3 % (0.0-4.0); HEMATOCRIT 32.3 % (39.0-51.0); HEMO FLAGS DIFF FINAL; LYMPH % 22.6 % (9.0-44.0); LYMPHOCYTE # 2.8 TH/MM3 (1.0-4.8); MEAN CELL VOLUME 90.6 FL (80.0-100.0); MEAN CORPUSCULAR HEMOGLOBIN 31.1 PG (27.0-34.0); MEAN CORPUSCULAR HGB CONC 34.3 % (32.0-36.0); MONO % 11.7 % (0.0-8.0); NEUT % 64.2 % (16.0-70.0); PLATELET COUNT 215 TH/MM3 (150-450); RED BLOOD COUNT 3.56 MIL/MM3 (4.50-5.90); RED CELL DISTRIBUTION WIDTH 11.8 % (11.6-17.2); WHITE BLOOD COUNT 12.3 TH/MM3 (4.0-11.0)
[2016-09-06 06:50] LABS: ALT (GPT) 20 U/L (12-78); ANION GAP 9 MEQ/L (5-15); AST (GOT) 45 U/L (15-37); BICARBONATE 25.8 MEQ/L (21.0-32.0); BLOOD UREA NITROGEN 4 MG/DL (7-18); CHLORIDE 105 MEQ/L (98-107); GLOMERULAR FILTRATION RATE 115 ML/MIN (>89); POTASSIUM 3.3 MEQ/L (3.5-5.1); SODIUM (NA) 140 MEQ/L (136-145)
[2016-09-06 06:53] LABS: ALKALINE PHOSPHATASE 54 U/L (45-117); TOTAL BILIRUBIN ADULT 0.9 MG/DL (0.2-1.0)
[2016-09-06] MEDS ORDERED: POTASSIUM CHLORIDE 20 MEQ CONTROLLED RELEASE TAB PO ONE (07:30)
[2016-09-06] MEDS: NS + KCL 20 MEQ INJ 1,000 ML IV SCH (08:02)
[2016-09-06] MEDS: SODIUM CHLORIDE 0.9% FLUSH 10 ML FLUSH IV FLUSH SCH ×2 (09:00→20:48)
--- NOTE | 2016-09-06 09:47 | HHI.PR ---
Subjective Remarks Follow-up abdominal pain. Reports pain at 6/10 at surgical site. No other complaints at this time. No BM, but does report flatus. Objective Vitals Vital Signs Date Time Temp Pulse Resp B/P Pulse Ox O2 Delivery O2 Flow Rate FiO2 09/06/16 08:00 100.6 97 17 115/69 98 09/06/16 03:35 97.9 96 16 105/58 95 09/06/16 00:27 97.9 09/06/16 00:25 101.2 104 17 107/59 92 09/05/16 19:40 100.2 100 17 110/58 93 09/05/16 16:00 103.1 96 18 136/80 93 09/05/16 12:00 97.9 81 18 120/78 97 I/O 09/05/16 09/05/16 09/05/16 09/06/16 09/06/16 09/06/16 07:00 15:00 23:00 07:00 15:00 23:00 Intake Total 0 ml 1147 ml 260 ml 240 ml Output Total 575 ml 600 ml 840 ml 505 ml Balance -575 ml 547 ml -580 ml -265 ml Intake Oral 0 ml 960 ml 260 ml 240 ml IV Total 187 ml Output Urine Total 575 ml 600 ml 800 ml 500 ml Drainage Total 40 ml 5 ml # Voids 4 # Bowel Movements 0 1 0 0 Result Diagram: 09/06/16 0537 09/06/16 0537 Imaging Last Impressions Abdomen/Pelvis CT 09/03/16 1905 Signed Impressions: Service Date/Time: Saturday, September 03, 2016 21:24 - CONCLUSION: 1. Distension of the gallbladder with thickening of the gallbladder wall surrounding inflammatory change and a 6 mm stone in the gallbladder neck region all concerning for cholecystitis 2. Suspected mild fatty infiltration of the liver. Rafa Sanders MD Objective Remarks General: No acute distress. Heart: Regular rate and rhythm. No murmur. Lungs: Clear to auscultation bilaterally. No wheezes, rales, or rhonchi. Breathing is nonlabored. Abdomen: Soft, appropriately tender, moderately distended. Extremities: No lower extremity edema. SCDs. Psych: Alert and oriented. Procedures 09/05/16 laparoscopic cholecystectomy Urinary Catheter: No Vascular Central Line Catheter: No A/P Problem List: (1) Sepsis ICD Code: A41.9 Status: Acute (2) Acute cholecystitis ICD Code: K81.0 Status: Acute (3) HIV (human immunodeficiency virus infection) ICD Code: Z21 Status: Acute (4) Abdominal pain ICD Code: R10.9 Status: Acute Assessment and Plan 1. Acute cholecystitis, abdominal pain: Status post cholecystectomy, POD #1. Management per general surgery. Continue pain control. 2. Sepsis: Patient meets criteria with leukocytosis, low-grade fever, tachycardic. Continue antibiotics. Blood cultures are negative so far. 3. HIV: Continue HAART. 4. DVT prophylaxis: MAYO Gax[place]. Inocente Cho MD Sep 06, 2016 09:47
--- NOTE | 2016-09-06 17:17 | HHI.PR ---
Subjective Subjective Notes Resting in bed Guards at bedside Objective Vitals/I&O Vital Signs Date Time Temp Pulse Resp B/P Pulse Ox O2 Delivery O2 Flow Rate FiO2 09/06/16 10:08 98 Nasal Cannula 21 09/06/16 08:00 100.6 97 17 115/69 Labs Laboratory Tests Test 09/06/16 05:37 White Blood Count 12.3 Red Blood Count 3.56 Hemoglobin 11.1 Hematocrit 32.3 Mean Corpuscular Volume 90.6 Mean Corpuscular Hemoglobin 31.1 Mean Corpuscular Hemoglobin 34.3 Concent Red Cell Distribution Width 11.8 Platelet Count 215 Mean Platelet Volume 8.2 Neutrophils (%) (Auto) 64.2 Lymphocytes (%) (Auto) 22.6 Monocytes (%) (Auto) 11.7 Eosinophils (%) (Auto) 1.3 Basophils (%) (Auto) 0.2 Neutrophils # (Auto) 7.9 Lymphocytes # (Auto) 2.8 Monocytes # (Auto) 1.4 Eosinophils # (Auto) 0.2 Basophils # (Auto) 0.0 CBC Comment DIFF FINAL Differential Comment Sodium Level 140 Potassium Level 3.3 Chloride Level 105 Carbon Dioxide Level 25.8 Anion Gap 9 Blood Urea Nitrogen 4 Creatinine 0.83 Estimat Glomerular Filtration 115 Rate Random Glucose 110 Calcium Level 8.4 Total Bilirubin 0.9 Aspartate Amino Transf 45 (AST/SGOT) Alanine Aminotransferase 20 (ALT/SGPT) Alkaline Phosphatase 54 Total Protein 7.0 Albumin 2.6 Date/Time Procedure Status Source Growth 09/03/16 19:30 Aerobic Blood Culture - Preliminary Resulted Blood Peripheral NO GROWTH IN 3 DAYS 09/03/16 19:30 Anaerobic Blood Culture - Preliminary Resulted Blood Peripheral NO GROWTH IN 3 DAYS Cardiovascular: Regular Lungs: Clear Abdomen: Other (mildly distended; lap sites c/d/i; ALISON with SS drainage ) Extremities: No edema A/P Assessment and Plan 61 year old male POD1 lap roshan -Regular diet -Pain control -Monitor ALISON---- possible DC tomorrow -OOB -Continue Zosyn -Plan to DC tomorrow if pain controlled Attending Statement The exam, history, and the medical decision-making described in the above note were completed with the assistance of the mid-level provider. I reviewed and agree with the findings presented. I attest that I had a [id number] encounter with the patient on the same day, and personally performed and documented my assessment and findings in the medical record. abdominal exam stable postop, keep drain 1 more day Marlen Eaton Sep 06, 2016 17:17 Dashawn Borden MD Sep 10, 2016 09:04
[2016-09-06] MEDS: EMTRICITABINE/TENOFOVIR 200 MG/300 MG TAB PO SCH (20:47)
[2016-09-07] VITALS: BP 106/66; PULSE 95; RESP 18; TEMP 100.2; O2SAT 93
[2016-09-07] MEDS: oxyCODONE/ACETAMINOPHEN 7.5 MG/325 MG TAB PO PRN ×4 (01:28→21:37)
[2016-09-07] MEDS: PIPERACIL-TAZO 4.5 GM PREMIX 100 ML IV SCH ×4 (01:29→20:18)
[2016-09-07] MEDS: NS + KCL 20 MEQ INJ 1,000 ML IV SCH ×3 (03:30→21:53)
[2016-09-07 04:00] VITALS: BP 115/75; PULSE 85; RESP 17; TEMP 98; O2SAT 95
[2016-09-07 08:01] VITALS: BP 112/72; PULSE 86; RESP 18; TEMP 97.9; O2SAT 95
[2016-09-07 08:11] LABS: AUTOMATED NEUTROPHIL # 6.2 TH/MM3 (1.8-7.7); BASOPHIL % 0.4 % (0.0-2.0); EOSINOPHIL # 0.5 TH/MM3 (0-0.4); EOSINOPHIL % 4.9 % (0.0-4.0); HEMATOCRIT 31.8 % (39.0-51.0); HEMO FLAGS DIFF FINAL; LYMPHOCYTE # 2.3 TH/MM3 (1.0-4.8); MEAN CELL VOLUME 90.6 FL (80.0-100.0); MEAN CORPUSCULAR HEMOGLOBIN 30.9 PG (27.0-34.0); MEAN CORPUSCULAR HGB CONC 34.1 % (32.0-36.0); MONO % 10.3 % (0.0-8.0); NEUT % 61.4 % (16.0-70.0); PLATELET COUNT 233 TH/MM3 (150-450); RED BLOOD COUNT 3.51 MIL/MM3 (4.50-5.90); RED CELL DISTRIBUTION WIDTH 11.8 % (11.6-17.2); WHITE BLOOD COUNT 10.1 TH/MM3 (4.0-11.0)
[2016-09-07] MEDS: SODIUM CHLORIDE 0.9% FLUSH 10 ML FLUSH IV FLUSH SCH ×2 (08:18→20:18)
[2016-09-07 08:23] LABS: BICARBONATE 27.4 MEQ/L (21.0-32.0); POTASSIUM 3.9 MEQ/L (3.5-5.1)
--- NOTE | 2016-09-07 09:04 | MP ---
cc: [place] CURRY DATE OF SURGERY: 09/05/2016 PREOPERATIVE DIAGNOSIS Acute cholecystitis POSTOPERATIVE DIAGNOSIS Severe acute cholecystitis. ATTENDING SURGEON Suha CONTENT ADMINISTRATOR Staff. ANESTHESIA General. PROCEDURE Laparoscopic cholecystectomy. FINDINGS Severe acute cholecystitis was significantly acute and chronic inflammation. INDICATION The patient is a 61-year-old male who is currently incarcerated. He developed three days of fever and right upper quadrant pain. The patient was evaluated in the emergency department and found to have acute cholecystitis on imaging and clinical evaluation. The patient was admitted to the hospitalist service and general surgery was consulted for evaluation. I discussed with the patient about the treatment of acute cholecystitis with laparoscopic cholecystectomy. The patient agreed to undergo the procedure. The risks, benefits and alternatives were explained to the patient and he agreed to undergo the procedure. DETAILS OF PROCEDURE After informed consent was obtained, the patient was taken to the operating room, placed in a supine position and placed under general endotracheal anesthesia. The patient's abdomen was prepped and draped in a sterile fashion. A timeout was performed. The abdomen was entered through a Ilia direct entry technique below the umbilicus. A small 2 cm curvilinear incision was made below the umbilicus and we spread down to the subcutaneous tissue and opened the midline fascia with the scalpel. We directly entered the abdominal cavity to the peritoneum bluntly and placed a 10 mm trocar into the abdomen under direct visualization. We insufflated the abdomen and surveyed the abdomen with a 5 mm, 30 degree camera and there was no evidence of any complication from our entry. We then placed a 10 mm port in the subxiphoid position and two 5 mm ports in the right upper quadrant under visualization of the laparoscope. We were able to visualize the gallbladder. There were severe omental, duodenal and small bowel adhesions up to the gallbladder. We undertook extensive dissection to dissect the other viscera off the gallbladder. We also needed to decompress the gallbladder due to the severity and distention of the gallbladder and this was done with the suction nailhead setter device through a cholecystotomy. We continued our dissection; again due to the severe acute inflammation this was very tedious and the majority of the case of approximately 35 minutes was used just dissecting acute inflammatory adhesions. We then were able to dissect to the triangle of Calot and the critical view of safety was obtained. There was a stone in the neck of the gallbladder as described on imaging. The cystic duct was doubly clipped proximal and distal and divided at this point. We also placed an Endoloop on the remaining cystic duct as well. We then took the cystic artery with one clip proximal and one clip distal and divided this with the electrocautery. We continue to use electrocautery to dissect the gallbladder off the gallbladder fossa without difficulty. The gallbladder was removed from the abdomen with an EndoCatch bag through the subxiphoid port. We then used the suction nailhead setter to irrigate out the abdomen which had some inflammatory fluid as well as blood clots. When all irrigation was clear we did place a 19-Khmer round Rk drain through the most lateral port site into the right upper quadrant. At this point in time once all the irrigation had been removed. We did remove ports under visualization with the laparoscope and expressed pneumoperitoneum. Both 10 ports were closed at the fascial level with 0 Vicryl sutures. The skin was closed with Monocryl and Dermabond. A nylon drain stitch was placed on the drain and the drain was placed to bulb suction. The patient was discontinued from anesthesia and taken to the PACU in stable condition. The patient tolerated the procedure well. No apparent complications. All counts were correct. I was present and scrubbed for the entire procedure. MD BEN Carranza/GIRMA /8:06 AM /8:45 AM
[2016-09-07 12:00] VITALS: BP_SYST 115; BP_SYST 122; BP_DIAS 71; BP_DIAS 75; PULSE 92; RESP 18; TEMP 97.5; TEMP 99; O2SAT 94; O2SAT 99
--- NOTE | 2016-09-07 14:32 | HHI.PR ---
Subjective Remarks Follow-up abdominal pain. Patient is reporting ongoing pain in his abdomen, especially at the site of the ALISON drain. States that he has still not had a bowel movement. No nausea or vomiting. Objective Vitals Vital Signs Date Time Temp Pulse Resp B/P Pulse Ox O2 Delivery O2 Flow Rate FiO2 09/07/16 12:00 99.0 92 18 115/71 94 09/07/16 08:01 97.9 86 18 112/72 95 09/07/16 04:00 98.0 85 17 115/75 95 09/07/16 00:00 100.2 95 18 106/66 93 09/06/16 20:00 99.1 100 17 117/73 93 09/06/16 16:00 98.1 89 16 123/76 96 I/O 09/06/16 09/06/16 09/06/16 09/07/16 09/07/16 09/07/16 07:00 15:00 23:00 07:00 15:00 23:00 Intake Total 240 ml 240 ml 240 ml Output Total 505 ml 300 ml 400 ml Balance -265 ml -60 ml -160 ml Intake Oral 240 ml 240 ml 240 ml Output Urine Total 500 ml 300 ml 400 ml Drainage Total 5 ml 0 ml 0 ml # Bowel Movements 0 0 0 Result Diagram: 09/07/16 0734 09/07/16 0734 Imaging Last Impressions Abdomen/Pelvis CT 09/03/16 190 Signed Impressions: Service Date/Time: Saturday, September 03, 2016 21:24 - CONCLUSION: 1. Distension of the gallbladder with thickening of the gallbladder wall surrounding inflammatory change and a 6 mm stone in the gallbladder neck region all concerning for cholecystitis 2. Suspected mild fatty infiltration of the liver. Rafa Sanders MD Objective Remarks General: No acute distress. Heart: Regular rate and rhythm. No murmur. Lungs: Clear to auscultation bilaterally. No wheezes, rales, or rhonchi. Breathing is nonlabored. Abdomen: Soft, appropriately tender, moderately distended. Extremities: No lower extremity edema. SCDs. Psych: Alert and oriented. Procedures 09/05/16 laparoscopic cholecystectomy Urinary Catheter: No Vascular Central Line Catheter: No A/P Problem List: (1) Sepsis ICD Code: A41.9 Status: Acute (2) Acute cholecystitis ICD Code: K81.0 Status: Acute (3) HIV (human immunodeficiency virus infection) ICD Code: Z21 Status: Acute (4) Abdominal pain ICD Code: R10.9 Status: Acute Assessment and Plan 1. Acute cholecystitis, abdominal pain: Status post cholecystectomy, POD #2. Management per general surgery. Continue pain control. 2. Sepsis: Patient met criteria with leukocytosis, low-grade fever, tachycardic. Continue antibiotics. Blood cultures are negative so far. Leukocytosis has resolved. MAXIMUM TEMPERATURE overnight 100.2. 3. HIV: Continue HAART. 4. DVT prophylaxis: SCDsaulo, MAYO walton. Discharge Planning [facility]. I have contacted Dr. Hitchcock at [facility] at the request of case management. Medically the patient could be transferred to [facility] if okay with the general surgery team and Dr. Hitchcock. Inocente Cho MD Sep 07, 2016 14:31
[2016-09-07 16:05] VITALS: BP 132/81; PULSE 95; RESP 15; TEMP 99.3; O2SAT 96
[2016-09-07] MEDS ORDERED: LACTULOSE SYRUP 20 GM/30 ML CUP PO ONE (17:00)
[2016-09-07] MEDS ORDERED: MAGNESIUM HYDROXIDE SUSP 30 ML CUP PO ONE (17:00)
--- NOTE | 2016-09-07 17:26 | HHI.PR ---
Subjective Subjective Notes Resting in bed Guards at bedside Objective Vitals/I&O Vital Signs Date Time Temp Pulse Resp B/P Pulse Ox O2 Delivery O2 Flow Rate FiO2 09/07/16 16:05 99.3 95 15 132/81 96 09/06/16 10:08 Nasal Cannula 21 Labs Laboratory Tests Test 09/07/16 07:34 White Blood Count 10.1 Red Blood Count 3.51 Hemoglobin 10.8 Hematocrit 31.8 Mean Corpuscular Volume 90.6 Mean Corpuscular Hemoglobin 30.9 Mean Corpuscular Hemoglobin 34.1 Concent Red Cell Distribution Width 11.8 Platelet Count 233 Mean Platelet Volume 7.9 Neutrophils (%) (Auto) 61.4 Lymphocytes (%) (Auto) 23.0 Monocytes (%) (Auto) 10.3 Eosinophils (%) (Auto) 4.9 Basophils (%) (Auto) 0.4 Neutrophils # (Auto) 6.2 Lymphocytes # (Auto) 2.3 Monocytes # (Auto) 1.0 Eosinophils # (Auto) 0.5 Basophils # (Auto) 0.0 CBC Comment DIFF FINAL Differential Comment Sodium Level 141 Potassium Level 3.9 Chloride Level 106 Carbon Dioxide Level 27.4 Anion Gap 8 Blood Urea Nitrogen 5 Creatinine 0.73 Estimat Glomerular Filtration 133 Rate Random Glucose 100 Calcium Level 8.7 Date/Time Procedure Status Source Growth 09/03/16 19:30 Aerobic Blood Culture - Preliminary Resulted Blood Peripheral NO GROWTH IN 4 DAYS 09/03/16 19:30 Anaerobic Blood Culture - Preliminary Resulted Blood Peripheral NO GROWTH IN 4 DAYS Cardiovascular: Regular Lungs: Clear Abdomen: Other (mildly distended; lap sites c/d/i ), Post-op tenderness Extremities: No edema A/P Assessment and Plan 61 year old male POD2 lap roshan -Regular diet -Pain control -DC ALISON drain -OOB -Continue Zosyn -Bowel regimen -Plan to DC tomorrow -Discusses with guards at bedside -Discussed with BORIS Gray Attending Statement The exam, history, and the medical decision-making described in the above note were completed with the assistance of the mid-level provider. I reviewed and agree with the findings presented. I attest that I had a [id number] encounter with the patient on the same day, and personally performed and documented my assessment and findings in the medical record. abdominal exam stable, looks good, DC Marlen Gregorio Sep 07, 2016 17:26 Dashawn Borden MD Sep 10, 2016 09:08
[2016-09-07 19:36] VITALS: BP 151/97; PULSE 97; RESP 16; TEMP 100.2; O2SAT 95
[2016-09-07] MEDS: EMTRICITABINE/TENOFOVIR 200 MG/300 MG TAB PO SCH (21:37)
[2016-09-08 00:20] VITALS: BP 133/86; PULSE 92; RESP 16; TEMP 97.8; O2SAT 95
[2016-09-08] MEDS: PIPERACIL-TAZO 4.5 GM PREMIX 100 ML IV SCH ×2 (03:04→08:06)
[2016-09-08 04:45] VITALS: BP 114/67; PULSE 93; RESP 16; TEMP 98.6; O2SAT 97
[2016-09-08 07:45] VITALS: BP 112/72; PULSE 86; RESP 18; TEMP 98.9; O2SAT 96
[2016-09-08] MEDS: oxyCODONE/ACETAMINOPHEN 7.5 MG/325 MG TAB PO PRN (08:05)
[2016-09-08] MEDS: SODIUM CHLORIDE 0.9% FLUSH 10 ML FLUSH IV FLUSH SCH (08:12)
--- NOTE | 2016-09-08 08:29 | HHI.PR ---
Subjective Remarks Follow up abdominal pain. The patient reports that his abdominal pain is currently 4/10. He did have a bowel movement this morning. Overall he feels better. No nausea or vomiting. Objective Vitals Vital Signs Date Time Temp Pulse Resp B/P Pulse Ox O2 Delivery O2 Flow Rate FiO2 09/08/16 07:45 98.9 86 18 112/72 96 09/08/16 04:45 98.6 93 16 114/67 97 09/08/16 00:20 97.8 92 16 133/86 95 09/07/16 19:36 100.2 97 16 151/97 95 09/07/16 16:05 99.3 95 15 132/81 96 09/07/16 12:00 99.0 92 18 115/71 94 I/O 09/07/16 09/07/16 09/07/16 09/08/16 09/08/16 09/08/16 07:00 15:00 23:00 07:00 15:00 23:00 Intake Total 240 ml 720 ml 240 ml 240 ml Output Total 400 ml 1430 ml 10 ml Balance -160 ml -710 ml 230 ml 240 ml Intake Oral 240 ml 720 ml 240 ml 240 ml Output Urine Total 400 ml 1400 ml Drainage Total 0 ml 30 ml 10 ml # Voids 5 1 # Bowel Movements 0 0 2 1 Result Diagram: 09/07/16 0734 09/07/16 0734 Imaging Last Impressions Abdomen/Pelvis CT 09/03/161904 Signed Impressions: Service Date/Time: Saturday, September 03, 2016 21:24 - CONCLUSION: 1. Distension of the gallbladder with thickening of the gallbladder wall surrounding inflammatory change and a 6 mm stone in the gallbladder neck region all concerning for cholecystitis 2. Suspected mild fatty infiltration of the liver. Rafa Sanders MD Objective Remarks General: No acute distress. Heart: Regular rate and rhythm. No murmur. Lungs: Clear to auscultation bilaterally. No wheezes, rales, or rhonchi. Breathing is nonlabored. Abdomen: Soft, appropriately tender, mildly distended. Extremities: No lower extremity edema. SCDs. Psych: Alert and oriented. Procedures 09/05/16 laparoscopic cholecystectomy Urinary Catheter: No Vascular Central Line Catheter: No A/P Problem List: (1) Sepsis ICD Code: A41.9 Status: Acute (2) Acute cholecystitis ICD Code: K81.0 Status: Acute (3) HIV (human immunodeficiency virus infection) ICD Code: Z21 Status: Acute (4) Abdominal pain ICD Code: R10.9 Status: Acute Assessment and Plan 1. Acute cholecystitis, abdominal pain: Status post cholecystectomy, POD #3. Management per general surgery. Continue pain control. 2. Sepsis: Patient met criteria with leukocytosis, low-grade fever, tachycardic. Continue antibiotics. Blood cultures are negative so far. Leukocytosis has resolved. MAXIMUM TEMPERATURE overnight 100.2. 3. HIV: Continue HAART. 4. DVT prophylaxis: SCDs, [place] [place]. Discharge Planning [facility] has requested transfer of the patient to [facility] ( [facility] I have contacted Dr. Hitchcock at [facility] at the request of case management. Plan for discharge to [facility] today if cleared by general surgery. Inocente Cho MD Sep 08, 2016 08:29
--- NOTE | 2016-09-08 09:08 | HHI.DCPOC ---
Discharge Care Plan Diagnosis: (1) Acute cholecystitis (2) Sepsis (3) HIV (human immunodeficiency virus infection) (4) Abdominal pain Goals to Promote Your Health * To prevent worsening of your condition and complications * To maintain your health at the optimal level Directions to Meet Your Goals Take your medications as prescribed Follow your dietary instruction Follow activity as directed Keep your appointments as scheduled Take your immunizations and boosters as scheduled If your symptoms worsen call your PCP, if no PCP go to Urgent Care Center or Emergency Room Smoking is Dangerous to Your Health. Avoid second hand smoke Call the 24-hour hour crisis hotline for domestic abuse at Inocente Cho MD Sep 08, 2016 09:08
--- NOTE | 2016-09-08 09:18 | HHI.DS ---
Discharge Summary Admission Date Sep 03, 2016 at 23:49 Discharge Date: Sep 08, 2016 Admitting Diagnosis sepsis, acute cholecystitis (1) Sepsis ICD Code: A41.9 (2) Acute cholecystitis ICD Code: K81.0 (3) HIV (human immunodeficiency virus infection) ICD Code: Z21 (4) Abdominal pain ICD Code: R10.9 Procedures 09/05/16 laparoscopic cholecystectomy Brief History - From Admission This is a 61-year-old male with PMH of HIV on HAART and Hepatitis C who was sent to the ER from [facility] for evaluation of acute onset of abdominal pain, nausea and vomiting. States symptoms started approx 3 days ago and have been getting progressively worse. Unable to take PO, reports subjective fever/ chills. On arrival, BP 106/60, HR 135, O2 sat 99% on RA, Temp 102.2. WBC 18. Chemistry unremarkable. Lactic Acid 1.0. INR 1.0. CT Abd/Pelvis w/ distention of gallbladder with thickening of gallbladder wall surrounding inflammatory change and 6 mm stone in gallbladder neck, concerning for cholecystitis. Dr. Borden consulted by ER physician, will evaluate for surgical intervention. S/p Zosyn in ER. CBC/BMP: 09/07/16 0734 09/07/16 0734 Significant Findings Laboratory Tests Test 09/05/16 09/06/16 09/07/16 09:41 05:37 07:34 Red Blood Count 3.71 MIL/MM3 3.56 MIL/MM3 3.51 MIL/MM3 (4.50-5.90) (4.50-5.90) (4.50-5.90) Hemoglobin 11.8 GM/DL 11.1 GM/DL 10.8 GM/DL (13.0-17.0) (13.0-17.0) (13.0-17.0) Hematocrit 33.5 % 32.3 % 31.8 % (39.0-51.0) (39.0-51.0) (39.0-51.0) Neutrophils (%) (Auto) 83.0 % (16.0-70.0) Lymphocytes # (Auto) 0.8 TH/MM3 (1.0-4.8) Aspartate Amino Transf 65 U/L (15-37) 45 U/L (15-37) (AST/SGOT) Albumin 2.8 GM/DL 2.6 GM/DL (3.4-5.0) (3.4-5.0) White Blood Count 12.3 TH/MM3 (4.0-11.0) Monocytes (%) (Auto) 11.7 % 10.3 % (0.0-8.0) (0.0-8.0) Neutrophils # (Auto) 7.9 TH/MM3 (1.8-7.7) Monocytes # (Auto) 1.4 TH/MM3 1.0 TH/MM3 (0-0.9) (0-0.9) Potassium Level 3.3 MEQ/L (3.5-5.1) Blood Urea Nitrogen 4 MG/DL (7-18) 5 MG/DL (7-18) Random Glucose 110 MG/DL (74-106) Calcium Level 8.4 MG/DL (8.5-10.1) Eosinophils (%) (Auto) 4.9 % (0.0-4.0) Eosinophils # (Auto) 0.5 TH/MM3 (0-0.4) Imaging Last Impressions Abdomen/Pelvis CT 09/03/161904 Signed Impressions: Service Date/Time: Saturday, September 03, 2016 21:24 - CONCLUSION: 1. Distension of the gallbladder with thickening of the gallbladder wall surrounding inflammatory change and a 6 mm stone in the gallbladder neck region all concerning for cholecystitis 2. Suspected mild fatty infiltration of the liver. Rafa Sanders MD PE at Discharge General: No acute distress. Heart: Regular rate and rhythm. No murmur. Lungs: Clear to auscultation bilaterally. No wheezes, rales, or rhonchi. Breathing is nonlabored. Abdomen: Soft, appropriately tender, mildly distended. Extremities: No lower extremity edema. SCDs. Psych: Alert and oriented. Hospital Course The patient was admitted for treatment of sepsis and acute cholecystitis. General surgery was consulted. Patient had laparoscopic cholecystectomy done. He continued to improve postoperatively. He was continued on IV antibiotics. Sepsis resolved. Arrangements were made for transfer to [facility] with the local correctional facility. The patient was cleared for discharge by gastroenterology. Pt Condition on Discharge: Stable Discharge Disposition: Dis to [employer] Discharge Time: > 30 minutes Discharge Instructions DIET: Follow Instructions for: Heart Healthy Diet Activities you can perform: Regular-No Restrictions Follow up Referrals: PCP Follow-up Surgical New Medications: Oxycodone-Acetaminophen (Oxycodone-Acetaminophen) 7.5-325 mg Tab 1 TAB PO Q4H PRN PAIN SCALE 3 TO 10 #20 Ref 0 TAB Continued Medications: Aspirin DR (Aspir-81) 81 Mg Tabdr 81 MG PO DAILY Calcium Polycarbophil (Fiber-Lax) 625 Mg Tab 1250 MG PO DAILY PRN CONSTIPATION Ref 0 TAB Bqpsakyzg-Uuzfgzkardqdj-Tlypoxyjf (Atripla) 600-200-300 Mg Tab 1 TAB PO HS Take on an empty stomach. Mgmt Viral Infection #30 Ref 0 TAB Levalbuterol 15 GM Inh (Xopenex Hfa 15 GM Inh) 45 Mcg/Act Aer 45 MCG INH Q4-6H Shake well before using. (1 puff = 45 mcg) #1 Ref 0 INHALER Multiple Vitamin (Multi-Vitamin Daily) 1 Tab Tab 1 TAB PO DAILY Nutritional Supplement Ref 0 TAB ([Clotrimazole Cream]) BID ([Teragel Shampoo]) ([Teragel]) DAILY Inocente Cho MD Sep 08, 2016 09:18
[2016-09-08] MEDS: NS + KCL 20 MEQ INJ 1,000 ML IV SCH (09:30)
[2016-09-08] MEDS ORDERED: OXYC1TAB35 PO (09:35)
--- NOTE | 2016-09-08 10:37 | HHI.PR ---
Subjective Subjective Notes Resting in bed Guards at bedside Objective Vitals/I&O Vital Signs Date Time Temp Pulse Resp B/P Pulse Ox O2 Delivery O2 Flow Rate FiO2 09/08/16 07:45 98.9 86 18 112/72 96 09/06/16 10:08 Nasal Cannula 21 Labs Date/Time Procedure Status Source Growth 09/03/16 19:30 Aerobic Blood Culture - Preliminary Resulted Blood Peripheral NO GROWTH IN 4 DAYS 09/03/16 19:30 Anaerobic Blood Culture - Preliminary Resulted Blood Peripheral NO GROWTH IN 4 DAYS Cardiovascular: Regular Lungs: Clear Abdomen: Other (soft; tender at incision sites; lap sites c/d/i with skin glue ) Extremities: No edema A/P Assessment and Plan 61 year old male POD3 lap roshan -Regular diet -Pain control -OOB -DC Zosyn -Okay to DC today from GS standpoint -Discusses with guards at bedside -Discussed with BORIS Gray and Dr. Cho Attending Statement The exam, history, and the medical decision-making described in the above note were completed with the assistance of the mid-level provider. I reviewed and agree with the findings presented. I attest that I had a [id number] encounter with the patient on the same day, and personally performed and documented my assessment and findings in the medical record. patient stable for Marlen Cleaning Sep 08, 2016 10:37 Dashawn Borden MD Sep 10, 2016 09:12
== END 2016-09-08 11:08 | DRG 975 ==
LOC: NEDAMB 16:37 → NEDA 23:49 → N06B 09-04 02:47
PROVIDERS: ADMIT Family Medicine; ATTEND Family Medicine
PROC: 0FT44ZZ Resection of Gallbladder, Percutaneous Endoscopic Approach (ICD-10-PCS; principal; 2016-09-05 05:57)
DX: A41.9 Sepsis, unspecified organism (principal); B20 Human immunodeficiency virus [HIV] disease; K80.00 Calculus of gallbladder with acute cholecystitis without obstruction; K82.8 Other specified diseases of gallbladder; B19.20 Unspecified viral hepatitis C without hepatic coma; Z65.3 Problems related to other legal circumstances; Z79.899 Other long term (current) drug therapy
CPT/HCPCS: 74177; 80048; 80053; 83605; 83690; 85007; 85025; 85027; 85610; 85730; 87040; 88304; 93005; 94150; 96374; 96375; J2250; J2270; J2370; J2405; J2543; J2710; J3010; J3370; J3480; J7030; J7050; J7120; Q9963; Q9967